=== PATIENT | female | born 2000 | race Caucasian/White ===

== ENCOUNTER 2021-09-30 15:43 | Emergency (ER) | payer OTHER ==
[~2021-09-30] VITALS: Ht 165.1 cm; Wt 63.5 kg
[~2021-09-30 15:43] MED LIST: AMOCLA400 PO; AMOX50SU PO; ANTOXYBENA OT; CODACEE120 PO; PERM5TC TOP; SULTRIEL PO
[2021-09-30] MEDS ORDERED: AMOX500 PO (15:51)
== END 2021-09-30 15:51 | disposition left against medical advice (07) ==
LOC: ER 15:43
DX: J02.9 Acute pharyngitis, unspecified (principal)
CPT/HCPCS: 99281

== ENCOUNTER 2023-04-20 08:59 | Emergency (ER) | payer OTHER ==
[~2023-04-20] VITALS: Ht 165.1 cm; Wt 68.0 kg
[~2023-04-20 08:59] MED LIST changes: +AMOX500 PO
[2023-04-20 09:56] VITALS: BP 146/88
[2023-04-20] MEDS ORDERED: CLIN300 PO ×2 (10:02)
[2023-04-20] MEDS ORDERED: HYDR1TAB94 PO ×2 (10:02)
== END 2023-04-20 10:03 | disposition home or self-care (01) ==
LOC: ER 08:59
DX: K04.7 Periapical abscess without sinus (principal)
CPT/HCPCS: 99283

== ENCOUNTER 2023-04-20 23:26 | Inpatient (IN) | payer OTHER ==
[~2023-04-20] VITALS: Ht 165.1 cm; Wt 66.1 kg
[~2023-04-20 23:26] MED LIST changes: +CLIN300 PO; +HYDR1TAB94 PO
[2023-04-21] MEDS ORDERED: Ketorolac Tromethamine 30mg Vial IV ONE (03:15)
[2023-04-21] MEDS ORDERED: Ampicillin Sod/Sulbactam Sod 3 GM in NS 100 ML IV ONE (03:15)
[2023-04-21] MEDS ORDERED: NS 1,000 ML IV SCH ×2 (03:15→08:40)
[2023-04-21 03:45] LABS: BASOPHILS ABSOLUTE AUTO 0.02 K/mm3 (0.00-0.23); BASOPHILS PERCENT AUTO 0 % (0-2); EOSINOPHILS ABSOLUTE AUTO 0.14 K/mm3 (0.00-0.68); EOSINOPHILS PERCENT AUTO 2 % (0-6); Hematocrit 36.6 % (33.0-51.0); Hemoglobin 12.3 g/dL (11.5-16.0); IMMATURE GRAN ABSOLUTE AUTO 0.03 K/mm3 (0.00-0.10); IMMATURE GRAN PERCENT AUTO 0 % (0-1); LYMPHOCYTES ABSOLUTE AUTO 1.11 K/mm3 (0.84-5.20); LYMPHOCYTES PERCENT AUTO 12 % (21-46); MONOCYTES ABSOLUTE AUTO 0.69 K/mm3 (0.16-1.47); MONOCYTES PERCENT AUTO 8 % (4-13); Mean Corpuscular HGB 30.1 pg (26.0-34.0); Mean Corpuscular HGB Conc 33.6 g/dL (31.5-36.5); Mean Corpuscular Volume 90 fL (80-100); Mean Platelet Volume 9.8 fL (9.1-12.4); NEUTROPHILS ABSOLUTE AUTO 6.96 K/mm3 (1.96-9.15); NEUTROPHILS PERCENT AUTO 78 % (41-73); Platelet Count 212 K/mm3 (150-400); RDW Standard Deviation 42.5 fL (35.1-46.3); Red Blood Cell Count 4.09 M/mm3 (3.80-5.20); White Blood Cell Count 8.95 K/mm3 (4.00-11.30)
[2023-04-21 04:06] LABS: Albumin/Globulin Ratio 1.2 (0.8-1.8); Bilirubin, Total 0.5 mg/dL (0.1-1.0); Bun/Creatinine Ratio 14.5 (12.0-20.0); Calcium, Blood 9.1 mg/dL (8.5-10.1); Creatinine, Blood 0.41 mg/dL (0.40-1.00); Globulin, Blood 3.3 g/dL (2.2-4.0); Potassium, Blood 3.8 mmol/L (3.5-5.5); Total Protein, Blood 7.3 g/dL (6.4-8.2)
[2023-04-21] MEDS ORDERED: Acetaminophen 325 MG TABLET PO ONE (06:50)
[2023-04-21] MEDS ORDERED: MethylPREDNISolone Sod Succ 125 MG Vial IV ONE (07:10)
[2023-04-21] MEDS ORDERED: HYDROmorphone HCl/Pf 1MG SYR IV PRN (08:30)
[2023-04-21] MEDS ORDERED: FLU VACC QS2023-24(6MOS UP)/PF 60 MCG/0.5 ML SYRINGE IM SCH (08:40)
[2023-04-21] MEDS ORDERED: Ondansetron 4 MG TAB PO PRN (08:40)
[2023-04-21] MEDS ORDERED: Ondansetron HCl 2 MG / ML 2ML Vial IV PRN (08:40)
[2023-04-21] MEDS ORDERED: Acetaminophen 325 MG TABLET PO PRN (08:40)
[2023-04-21 10:12] VITALS: BP 146/96
[2023-04-21] MEDS ORDERED: Ampicillin Sod/Sulbactam Sod 3 GM in NS 100 ML IV SCH (11:00)
--- NOTE | 2023-04-21 11:33 | NUR ---
PCU ADMIT PT BROUGHT TO PCU-18 BY FENG FROM ER @ APPROX 1000. PT A&O X4, ABLE TO STAND & INDEPENDENTLY AMBULATE FROM [facility] TO PCU BED. PT VSS. SPO2 > 92% ON RA. MONITOR SHOWING SR-ST, HR 90s-110s. PT L JAW AREA SWOLLEN. WHITE CHUNKS NOTED IN PTs MOUTH SURROUNDING L BOTTOM MOLAR THAT IS CAPPED FROM PT REPORT OF AN UNFINISHED ROOT CANAL 3 WEEKS AGO. PT DENYING PAIN/DISCOMFORT AT THIS TIME, STATING "WHAT THEY GAVE ME IN THE ER HELPED. I'M OKAY RIGHT NOW." PT REPORTS TAKING TYLENOL & IBUPROPHEN AT HOME & THAT HAVING BEEN ADEQUATE FOR HER PAIN MANAGEMENT.
[2023-04-21 15:47] VITALS: BP 130/91
[2023-04-21] MEDS ORDERED: ALPRAZolam 0.25 MG Tab PO PRN (15:55)
[2023-04-21] MEDS ORDERED: MethylPREDNISolone Sod Succ 125 MG Vial IV SCH (16:00)
--- NOTE | 2023-04-21 18:15 | NUR ---
END OF SHIFT PT A&O X4. VSS. SPO2 > 92% ON RA. MONITOR SHOWING SR-ST, HR 90s-120s W/ HR INCREASE TO 160s W/ PT REPORT OF HAVING A "PANIC ATTACK." PT REPORTING FEELING "FREAKED OUT ABOUT BEING IN THE HOSPITAL & MY MOUTH GETTING WORSE." PT REPORTS HAVING SOME ANXIETY IN THE PAST, BUT DENIES HAVING EVER TAKEN MEDICATION FOR ANXIETY. CALL TO MD MUÑIZ W/ ORDER FOR PRN PO XANAX, SEE ORDER. PT REPORTING IMPROVEMENT AFTER MEDICATION. NS GTT & IV ABX & IV STEROID GIVEN PER EMAR. PT REPORTS IMPROVEMENT IN L JAW DISCOMFORT & L JAW APPEARS LESS SWOLLEN COMPARED TO PT ARRIVAL. L BOTTOM MOLAR TOOTH SITE CONTINUES TO HAVE THICK WHITE DRAINAGE. PT RINSING & SPITTING OUT CONTENTS.
[2023-04-21 20:00] VITALS: BP 142/97
[2023-04-22] VITALS: BP 130/81
[2023-04-22 03:58] VITALS: BP 115/66
[2023-04-22 05:50] LABS: BASOPHILS ABSOLUTE AUTO 0.01 K/mm3 (0.00-0.23); BASOPHILS PERCENT AUTO 0 % (0-2); EOSINOPHILS PERCENT AUTO 0 % (0-6); Hematocrit 36.1 % (33.0-51.0); Hemoglobin 12.1 g/dL (11.5-16.0); IMMATURE GRAN ABSOLUTE AUTO 0.07 K/mm3 (0.00-0.10); IMMATURE GRAN PERCENT AUTO 1 % (0-1); LYMPHOCYTES ABSOLUTE AUTO 0.64 K/mm3 (0.84-5.20); LYMPHOCYTES PERCENT AUTO 7 % (21-46); MONOCYTES ABSOLUTE AUTO 0.32 K/mm3 (0.16-1.47); MONOCYTES PERCENT AUTO 3 % (4-13); Mean Corpuscular HGB 29.7 pg (26.0-34.0); Mean Corpuscular HGB Conc 33.5 g/dL (31.5-36.5); Mean Corpuscular Volume 89 fL (80-100); Mean Platelet Volume 9.8 fL (9.1-12.4); NEUTROPHILS ABSOLUTE AUTO 8.51 K/mm3 (1.96-9.15); NEUTROPHILS PERCENT AUTO 89 % (41-73); Platelet Count 245 K/mm3 (150-400); RDW Coefficient Variation 12.8 % (11.7-14.2); RDW Standard Deviation 41.5 fL (35.1-46.3); Red Blood Cell Count 4.07 M/mm3 (3.80-5.20); White Blood Cell Count 9.55 K/mm3 (4.00-11.30)
--- NOTE | 2023-04-22 05:56 | NUR ---
SHIFT SUMMARY PT REMAINS A&O X4, PLEASANT AND COOPERATIVE WITH CARE. VS; SR/ST RATE IN 90 - 1 TEENS; OCCASSIONAL 120 - 130'S. SBP 1 TEEN - 130'S, AFEBRILE, RR WNL, AND SPO2 >95% ON RA. PT DENIES DIFFICULTY SWALLOWING OR EATING AT THIS TIME. PT TOLERATING PO INTAKE WELL. PT REPORTS THAT PAIN IN HER TOOTH AND JAW "ARE GETTING MUCH BETTER, BUT STILL KIND OF COMES AND GOES". DENIES N/V, SOB, CP/PRESSURE, DIZZINESS. PT HAD UNEVENTFUL NIGHT WITH NO ACUTE CHANGES. PT RESTED VERY WELL DURING THE NIGHT. NO EPISODES OF ANXIETY DURING THE NIGHT. IVF AND ABX PER EMAR. PT AMBULATING TO RESTROOM INDEPENDENTLY AND TOLERATING WELL. NO BM THIS SHIFT; PT REPORTS SHE HAS NOT HAD BM FOR "ABOUT 1 WEEK OR SO". OTHERWISE DENIES ISSUES GI/. CALL LIGHT IN REACH. WILL UPDATE ONCOMING RN.
[2023-04-22 06:30] LABS: Bun/Creatinine Ratio 28.1 (12.0-20.0); Calcium, Blood 9.5 mg/dL (8.5-10.1); Creatinine, Blood 0.39 mg/dL (0.40-1.00)
[2023-04-22 08:27] VITALS: BP 117/74
--- NOTE | 2023-04-22 09:46 | NUR ---
AM NOTE: ASSUMED CARE OF PT THIS AM APPROX 0715 AFTER RECEIVING REPORT FROM ALEXEI GILLESPIE. PT IS A&Ox4, ANSWERING QUESTIONS APPROPRIATELY, COOPERATIVE W/CARE. PT DENIES SOB, O2 SAT >93% ON RA. PT DENIES CP, SR/ST ON MONITOR W/RATE 90s-100s. PT MAEW, IS INDEPENDENT IN ROOM, ABLE TO MAKE NEEDS KNOWN. L FACIAL SWELLING CONTINUES, BUT PT STATES IMPROVEMENT TO SWELLING AND PAIN. CONSULTATION HAS BEEN CALLED IN TO ANSWERING SERVICE FOR DR AREVALO, AWAITING PLAN OF CARE. PT HAS BEEN NPO SINCE MIDNIGHT.
[2023-04-22] MEDS ORDERED: Lidocaine 2%-Epineph 1:100000 20 ML MDV XX SCH (13:10)
[2023-04-22] MEDS ORDERED: Sodium Bicarb 8.4% 1 MEQ/ML 50 ML Vial IV ONE (13:15)
[2023-04-22] MEDS ORDERED: FentaNYL Citrate 50 MCG/ML 2 ML Injection IV ONE (13:40)
[2023-04-22 15:55] VITALS: BP 119/78
--- NOTE | 2023-04-22 17:05 | NUR ---
SHIFT SUMMARY: NO ACUTE CHANGES SINCE INITIAL NOTE. PT CONTINUES A&Ox4, ABLE TO MAKE NEEDS KNOWN, COOPERATIVE W/CARE. RESPIRATORY STATUS UNCHANGED. TELEMETRY DC'd, PT DENIES CP, VSS. L FACIAL SWELLING CONTINUES TO IMPROVE T/OUT DAY, PT DENIES NEED FOR PAIN MEDICATION AND REPORTS FEELING OF IMPROVEMENT. DR AREVALO TO/FROM BEDSIDE FOR CONSULTATION, NO INTERVENTIONS COMPLETED D/TO IMPROVEMENT TO ABSCESS/DRAINAGE/SWELLING. IV ABX THERAPY CONTINUES PER ORDERS. PT TOLERATING PO FLUIDS, REGULAR DIET ORDERED, PT CHANGED TO SURGICAL STATUS. AT THIS TIME, PT IS RESTING QUIETLY IN ROOM W/CALL LIGHT IN REACH. WILL CONTINUE TO MONITOR AND TREAT ACCORDINGLY UNTIL CHANGE OF SHIFT.
[2023-04-22 20:00] VITALS: BP 118/68
--- NOTE | 2023-04-22 20:22 | NUR ---
ASSUMPTION OF CARE THIS RN ASSUMED CARE OF PT AT 1900, REPORT FROM SONIDO LINDA. PT A&O X4, PLEASANT AND COOPERATIVE WITH CARE. PT'S MOTHER AT BEDSIDE VISITING. VSS; BP 118/68 (MAP 84), SR HR 93, RR17, PT ON RA SPO2 98%, TEMP 98.3. PT DENIES PAIN IN HER JAW/TOOTH. PT DENIES DIFFICULTY SWALLOWING. REPORTS "EVERYTHING IS GETTING AND FEELING BETTER". PT'S JAW/MOUTH DOES LOOK NOTICEABLY IMPROVED AND SWELLING MUCH IMPROVED. PT RESPORTS NO ISSUES GI/; PT REPORTS SHE HAD A BM TODAY THAT WAS WNL. PT VOIDING WELL AND AMBULATING INDEPENDENTLY. CALL LIGHT IN REACH, PT DENIES NEEDS AT THIS TIME.
[2023-04-23 00:18] VITALS: BP 106/68
[2023-04-23 04:32] VITALS: BP 116/70
--- NOTE | 2023-04-23 05:34 | NUR ---
SHIFT SUMMARY PT REMAINS A&O X4. VSS; SBP 106 - 1 TEENS, SR WITH HR 70 - 90'S, AFEBRILE, REMAINS ON RA WITH SPO2 >96%. PT HAD A FEW VISITORS, BUT OTHERWISE SLEPT MOST OF THE SHIFT. PT'S SWELLING OF HER MOUTH/JAW HAS MUCH IMPROVED, PT TOLERATING PO INTAKE WELL. PT DENIES PAIN OR DIFFICULTY SWALLOWING. PT AMBULATING TO RESTROOM INDEPENDENTLY, VOIDING WELL; DENIES ANY CONCERNS OR CHANGES. PT REPORTS HAD A BM THAT WAS LARGE, FORMED AND WNL. DENIES ANY CONCERNS. NO ACUTE CHANGES OVERNIGHT. PT CURRENTLY RESTING, CALL LIGHT IN REACH. WILL UPDATE ONCOMING RN
[2023-04-23 08:00] VITALS: BP 112/82
[2023-04-23 16:14] VITALS: BP 120/78
--- NOTE | 2023-04-23 17:29 | NUR ---
SHIFT SUMMARY: PT HAS BEEN A&Ox4, COOPERATIVE W/CARE, ABLE TO MAKE NEEDS KNOWN. PT DENIES SOB, O2 SATS >93% ON RA. VSS. PT HAS BEEN INDEPENDENT IN ROOM. FACIAL SWELLING CONTINUES TO IMPROVE, PT MEDICATED x1 W/TYLENOL FOR C/O MILD DISCOMFORT. DENTAL HYGIENIST TO BEDSIDE FOR EVALUATION/TREATMENT AND HAS ASSISTED PT WITH ESTABLISHING A F/UP APPT W/NEW DENTIST UPON DISCHARGE. IV ABX THERAPY CONTINUES PER ORDERS. PT RESTING IN BED W/MOTHER AT BEDSIDE, WILL CONTINUE TO MONITOR AND TREAT ACCORDINGLY UNTIL CHANGE OF SHIFT.
--- NOTE | 2023-04-23 17:56 | NUR ---
TRANSFER: PT HAS RECEIVED NEW ROOM ASSIGNMENT IN SURGICAL DEPT. REPORT GIVEN TO ALEXEI SULLIVAN TO RECEIVE PT.
--- NOTE | 2023-04-23 18:42 | NUR ---
SHIFT SUMMARY PT TRANSFERRED FROM PCU, A&OX4, VSS/RA, VINAY PO, ABX INFUSING AT TRANSFER, MOM BEDSIDE. WILL REPORT TO ONCOMING LIZBETH RN.
[2023-04-23 19:50] VITALS: BP 111/74
[2023-04-24 06:02] VITALS: BP 127/78
[2023-04-24 07:13] VITALS: BP 118/69
--- NOTE | 2023-04-24 07:23 | NUR ---
PT VSS T/O NIGHT. PT REP PAIN MINIMAL, DECLINED NEED FOR PAIN MEDS. PT REP SWELLING AND PAIN MUCH IMPROVED. PT VINAY PO, DENIED INC PAIN W/EATING OR SWALLOWING DIFFICULTIES. IV ABX CONT PER ORDERS.
[2023-04-24] MEDS ORDERED: AMOCLA875 PO ×2 (12:05)
--- NOTE | 2023-04-24 12:38 | NUR ---
DISCHARGE PT A&OX4, VSS/RA, VINAY PO, VOIDING, AMB INDEPENDENT, DENIES NEED FOR PAIN MED, IV DC'D. DC INS PROVIDED. PT REP UNDERSTANDING THOSE INSTRUCTIONS INCLUDING: [facility] X7DAYS UNTIL FINISHED, CALL DR AREVALO IF ABSCESS WORSENS, SCHEDULE WITH PCP AND ATTEND APPT WITH DENTIST ON SUNDAY, TAKE TYLENOL FOR PAIN. LEFT FLOOR WITH ALL PERSONAL POSSESSIONS TO GO HOME WITH MOM.
== END 2023-04-24 12:33 | disposition home or self-care (01) | DRG 159 ==
LOC: ER 23:26 → ERHOLD 04-21 08:36 → PCU 04-21 08:36 → SURS 04-23 17:53
PROVIDERS: Student in an Organized Health Care Education/Training Program; ADMIT Internal Medicine
DX: K04.7 Periapical abscess without sinus (principal)
CPT/HCPCS: 36415; 70487; 80048; 80053; 84703; 85025; 94762; 96365; 96366; 96375; 99283; 99285-25; A9270; J0295; J1885; J2930; J7030; Q9967

== ENCOUNTER 2023-05-01 20:18 | Emergency (ER) | payer OTHER ==
[~2023-05-01] VITALS: Ht 165.1 cm; Wt 63.5 kg
[~2023-05-01 20:18] MED LIST changes: +AMOCLA875 PO
[2023-05-01 22:05] VITALS: BP 127/91
[2023-05-02] MEDS ORDERED: AMOCLA875 PO (00:33)
[2023-05-02] MEDS ORDERED: Amoxicillin/Clavulanate K 875 MG Tab PO ONE (00:35)
== END 2023-05-02 00:41 | disposition home or self-care (01) ==
LOC: ER 20:18
DX: K08.89 Other specified disorders of teeth and supporting structures (principal); Z87.19 Personal history of other diseases of the digestive system
CPT/HCPCS: 99282; A9270

== ENCOUNTER 2024-02-06 09:06 | Emergency (ER) | payer OTHER ==
[~2024-02-06] VITALS: Ht 162.6 cm; Wt 65.8 kg
[2024-02-06 10:57] LABS: BASOPHILS ABSOLUTE AUTO 0.03 K/mm3 (0.00-0.23); BASOPHILS PERCENT AUTO 0 % (0-2); EOSINOPHILS ABSOLUTE AUTO 0.13 K/mm3 (0.00-0.68); EOSINOPHILS PERCENT AUTO 2 % (0-6); Hematocrit 40.7 % (33.0-51.0); Hemoglobin 13.8 g/dL (11.5-16.0); IMMATURE GRAN ABSOLUTE AUTO 0.01 K/mm3 (0.00-0.10); IMMATURE GRAN PERCENT AUTO 0 % (0-1); LYMPHOCYTES ABSOLUTE AUTO 1.27 K/mm3 (0.84-5.20); LYMPHOCYTES PERCENT AUTO 16 % (21-46); MONOCYTES ABSOLUTE AUTO 0.49 K/mm3 (0.16-1.47); MONOCYTES PERCENT AUTO 6 % (4-13); Mean Corpuscular HGB 30.4 pg (26.0-34.0); Mean Corpuscular HGB Conc 33.9 g/dL (31.5-36.5); Mean Corpuscular Volume 90 fL (80-100); Mean Platelet Volume 9.7 fL (9.1-12.4); NEUTROPHILS ABSOLUTE AUTO 5.83 K/mm3 (1.96-9.15); NEUTROPHILS PERCENT AUTO 75 % (41-73); Platelet Count 232 K/mm3 (150-400); RDW Coefficient Variation 11.9 % (11.7-14.2); RDW Standard Deviation 38.7 fL (35.1-46.3); Red Blood Cell Count 4.54 M/mm3 (3.80-5.20); White Blood Cell Count 7.76 K/mm3 (4.00-11.30)
[2024-02-06 11:07] LABS: Magnesium, Blood 2.1 mg/dL (1.6-2.4)
[2024-02-06 11:08] LABS: Albumin, Blood 4.5 g/dL (3.4-5.0); Albumin/Globulin Ratio 1.5 (0.8-1.8); Bilirubin, Total 0.7 mg/dL (0.1-1.0); Bun/Creatinine Ratio 10.6 (12.0-20.0); Calcium, Blood 9.8 mg/dL (8.5-10.1); Creatinine, Blood 0.57 mg/dL (0.40-1.00); Potassium, Blood 4.2 mmol/L (3.5-5.5); Total Protein, Blood 7.5 g/dL (6.4-8.2)
[2024-02-06 14:26] VITALS: BP 136/83
[2024-02-06] MEDS ORDERED: LAVAP4L PO (14:26)
== END 2024-02-06 14:52 | disposition home or self-care (01) ==
LOC: ER 09:06
PROVIDERS: Physician Assistant
DX: K59.00 Constipation, unspecified (principal); Z79.899 Other long term (current) drug therapy
CPT/HCPCS: 74177; 80053; 83735; 84703; 85025; 99284-25; Q9967

== ENCOUNTER → 2024-04-18 | Outpatient (CLI) | payer OTHER ==
[~2024-04-18] MED LIST changes: +LAVAP4L PO
[2024-04-18 12:56] LABS: Source, Urine Clean Catch
[2024-04-18 14:54] LABS: BASOPHILS ABSOLUTE AUTO 0.02 K/mm3 (0.00-0.23); BASOPHILS PERCENT AUTO 0 % (0-2); EOSINOPHILS ABSOLUTE AUTO 0.16 K/mm3 (0.00-0.68); EOSINOPHILS PERCENT AUTO 2 % (0-6); Hematocrit 42.3 % (33.0-51.0); Hemoglobin 14.5 g/dL (11.5-16.0); IMMATURE GRAN ABSOLUTE AUTO 0.03 K/mm3 (0.00-0.10); IMMATURE GRAN PERCENT AUTO 0 % (0-1); LYMPHOCYTES ABSOLUTE AUTO 1.39 K/mm3 (0.84-5.20); LYMPHOCYTES PERCENT AUTO 18 % (21-46); MONOCYTES ABSOLUTE AUTO 0.48 K/mm3 (0.16-1.47); MONOCYTES PERCENT AUTO 6 % (4-13); Mean Corpuscular HGB 30.3 pg (26.0-34.0); Mean Corpuscular HGB Conc 34.3 g/dL (31.5-36.5); Mean Corpuscular Volume 89 fL (80-100); Mean Platelet Volume 9.8 fL (9.1-12.4); NEUTROPHILS ABSOLUTE AUTO 5.86 K/mm3 (1.96-9.15); NEUTROPHILS PERCENT AUTO 74 % (41-73); Platelet Count 298 K/mm3 (150-400); RDW Coefficient Variation 12.1 % (11.7-14.2); RDW Standard Deviation 39.6 fL (35.1-46.3); Red Blood Cell Count 4.78 M/mm3 (3.80-5.20); White Blood Cell Count 7.94 K/mm3 (4.00-11.30)
[2024-04-18 14:57] LABS: Appearance, Urine Clear (Clear); Bilirubin, Urine Neg (Neg); Blood, Urine Neg (Neg); Color, Urine Yellow (P-Yellow); Glucose Qualitative, Urine Neg (Neg); Ketones, Urine Neg (Neg); Leukocyte Esterase, Urine Neg (Neg); Nitrite, Urine Neg (Neg); Protein, Urine Neg (Neg); Urobilinogen, Urine NORM (Normal)
[2024-04-20 16:38] LABS: HIV 1,2 COMBO ANTIGEN/ANTIBODY Negative (Negative)
[2024-04-20 20:07] LABS: HEPATITIS B SURFACE ANTIGEN Negative (Negative)
[2024-04-21 09:58] LABS: HEPATITIS C AB CIA INTERP Negative (Negative); HEPATITIS C ANTIBODY CIA INDEX 0.06 IV
== END | disposition home or self-care (01) ==
LOC: LAB SHORT 12:52
PROVIDERS: Registered Nurse Community Health
DX: Z34.91 Encounter for supervision of normal pregnancy, unspecified, first trimester (principal)
CPT/HCPCS: 81003; 84443; 86803; 87086; 87340; 87389

== ENCOUNTER → 2024-06-12 | Outpatient (CLI) | payer OTHER ==
[2024-06-12 20:56] LABS: Chlamydia Trachomatis Urine NOT DETECTED (NOT DETECT); Neisseria Gonorrhoea Urine NOT DETECTED (NOT DETECT)
== END ==
LOC: LAB SHORT 16:44 → LAB 16:44
PROVIDERS: Registered Nurse Community Health
DX: Z34.02 Encounter for supervision of normal first pregnancy, second trimester (principal)
CPT/HCPCS: 87491; 87591

== ENCOUNTER → 2024-10-29 | Outpatient (CLI) | payer OTHER | LOC: LAB SHORT 18:00 → LAB 18:00 | DX: Z34.03 Encounter for supervision of normal first pregnancy, third trimester (principal) | CPT/HCPCS: 87081; 87150 ==

== ENCOUNTER 2024-11-21 02:11 | Inpatient (IN) | payer OTHER ==
[2024-11-21] VITALS (42 sets, daily range): BP systolic 103–145; BP diastolic 59–104
[~2024-11-21] VITALS: Ht 165.1 cm; Wt 84.5 kg
[2024-11-21] MEDS ORDERED: ePHEDrine Sulfate 50 MG/ML 1ML Injection XX PRN (02:30)
[2024-11-21] MEDS ORDERED: FentaNYL 2mcg/ml-Bup 0.1% Epd 250 ML EPI PRN (02:30)
[2024-11-21] MEDS ORDERED: Ondansetron HCl 2 MG / ML 2ML Vial IV PRN (02:30)
[2024-11-21] MEDS ORDERED: Penicillin G Potassium 5,000,000 UNITS in NS 250 ML IV ONE (02:30)
[2024-11-21] MEDS ORDERED: Methylergonovine Maleate 0.2MG / ML 1ML Amp IM PRN (02:30)
[2024-11-21] MEDS ORDERED: Tranexamic Acid 100 ML IV SCH (02:30)
[2024-11-21] MEDS ORDERED: OXYTOCIN/RINGER'S LACTATE 500 ML IV PRN (02:30)
[2024-11-21] MEDS ORDERED: Carboprost Tromethamine 250 MCG/ML 1ML Amp IM PRN (02:30)
[2024-11-21] MEDS ORDERED: Oxytocin 10 Unit / ML Vial IM PRN (02:30)
[2024-11-21] MEDS ORDERED: FentaNYL Citrate 50 MCG/ML 2 ML Injection IV PRN (02:50)
[2024-11-21] MEDS ORDERED: PRENATAL TABLE1 EAC2 PO (02:57)
[2024-11-21] MEDS ORDERED: FentaNYL Citrate 50 MCG/ML 2 ML Injection ONE ×2 (02:57→03:48)
[2024-11-21 03:00] LABS: Hematocrit 39.0 % (33.0-51.0); Hemoglobin 13.9 g/dL (11.5-16.0); Mean Corpuscular HGB Conc 35.6 g/dL (31.5-36.5); Mean Corpuscular Volume 86 fL (80-100); Platelet Count 174 K/mm3 (150-400); RDW Coefficient Variation 12.6 % (11.7-14.2); RDW Standard Deviation 39.5 fL (35.1-46.3)
[2024-11-21 03:01] LABS: NRBC ABSOLUTE 0.00 K/mm3 (0.00-0.02); NRBC Auto 0.0 /100 WBC (0.0-0.2)
[2024-11-21 03:18] LABS: BAND PERCENT MAN 5 % (0-8); BASOPHILS ABSOLUTE MAN 0.00 K/mm3 (0.00-0.23); BASOPHILS PERCENT MAN 0 % (0-2); EOSINOPHILS ABSOLUTE MAN 0.13 K/mm3 (0.00-0.68); EOSINOPHILS PERCENT MAN 1 % (0-6); LYMPHOCYTES ABSOLUTE MAN 2.09 K/mm3 (0.84-5.20); LYMPHOCYTES PERCENT MAN 15 % (21-46); MONOCYTES ABSOLUTE MAN 0.41 K/mm3 (0.16-1.47); MONOCYTES PERCENT MAN 3 % (4-13); NEUTROPHILS ABSOLUTE MAN 11.29 K/mm3 (1.96-9.15); SEG NEUTROPHILS PERCENT MAN 76 % (41-73)
[2024-11-21] MEDS ORDERED: Penicillin G Potassium 2,500,000 UNITS in Dextrose 5% 100 ML IV SCH (07:00)
--- NOTE | 2024-11-21 10:24 | NUR ---
Spiritual Care Referral; responded to a spiritual care referral. Pt. declined spiritual care.
[2024-11-21] MEDS ORDERED: Benzocaine Topical Anesthetic Spray 60GM TOP PRN (17:40)
[2024-11-21] MEDS ORDERED: Ketorolac Tromethamine 30mg Vial IV PRN (17:45)
[2024-11-21] MEDS ORDERED: Witch Hazel/Glycerin PADS TOP PRN (17:45)
[2024-11-22 00:55] VITALS: BP 114/68
[2024-11-22 04:18] VITALS: BP 124/87
--- NOTE | 2024-11-22 04:52 | NUR ---
at 0400. pt calls [facility] and expresses desire to pump vs. breastfeed. Pt states she does not have a pump here or at home. I informed her that we have one she could use during her stay and that I would try to arrange getting her one for when she leave. I discussed all feeding options and offered help from a systems consultant.
[2024-11-22 05:48] LABS: BASOPHILS ABSOLUTE AUTO 0.01 K/mm3 (0.00-0.23); BASOPHILS PERCENT AUTO 0 % (0-2); EOSINOPHILS ABSOLUTE AUTO 0.08 K/mm3 (0.00-0.68); EOSINOPHILS PERCENT AUTO 1 % (0-6); Hematocrit 33.9 % (33.0-51.0); Hemoglobin 12.0 g/dL (11.5-16.0); IMMATURE GRAN ABSOLUTE AUTO 0.06 K/mm3 (0.00-0.10); IMMATURE GRAN PERCENT AUTO 0 % (0-1); LYMPHOCYTES ABSOLUTE AUTO 1.69 K/mm3 (0.84-5.20); LYMPHOCYTES PERCENT AUTO 12 % (21-46); MONOCYTES ABSOLUTE AUTO 1.08 K/mm3 (0.16-1.47); MONOCYTES PERCENT AUTO 8 % (4-13); Mean Corpuscular HGB Conc 35.4 g/dL (31.5-36.5); Mean Corpuscular Volume 88 fL (80-100); NEUTROPHILS ABSOLUTE AUTO 10.68 K/mm3 (1.96-9.15); NEUTROPHILS PERCENT AUTO 79 % (41-73); NRBC ABSOLUTE 0.00 K/mm3 (0.00-0.02); NRBC Auto 0.0 /100 WBC (0.0-0.2); Platelet Count 142 K/mm3 (150-400); RDW Coefficient Variation 13.0 % (11.7-14.2); RDW Standard Deviation 42.1 fL (35.1-46.3)
[2024-11-22 08:10] VITALS: BP 126/84
[2024-11-22] MEDS ORDERED: Prenatal Vit/FE Fumarate/FA 1 Tab PO SCH (09:00)
== END 2024-11-22 18:25 | disposition home or self-care (01) | DRG 807 ==
LOC: OBS 02:11 → BC 02:13 → OBS 02:27 → BC 02:31
PROVIDERS: Family Medicine; ADMIT Family Medicine
PROC: 10E0XZZ Delivery of Products of Conception, External Approach (ICD-10-PCS; principal; 2024-11-21)
PROC: 3E0R3BZ Introduction of Anesthetic Agent into Spinal Canal, Percutaneous Approach (ICD-10-PCS; principal; 2024-11-21)
PROC: 3E03329 Introduction of Other Anti-infective into Peripheral Vein, Percutaneous Approach (ICD-10-PCS; principal; 2024-11-21)
PROC: 00HU33Z Insertion of Infusion Device into Spinal Canal, Percutaneous Approach (ICD-10-PCS; principal; 2024-11-21)
PROC: 10907ZC Drainage of Amniotic Fluid, Therapeutic from Products of Conception, Via Natural or Artificial Opening (ICD-10-PCS; principal; 2024-11-21)
DX: O48.0 Post-term pregnancy (principal); Z37.0 Single live birth; O99.344 Other mental disorders complicating childbirth; F41.0 Panic disorder [episodic paroxysmal anxiety]; Z3A.40 40 weeks gestation of pregnancy; O99.824 Streptococcus B carrier state complicating childbirth; O77.0 Labor and delivery complicated by meconium in amniotic fluid; Z79.899 Other long term (current) drug therapy
CPT/HCPCS: 36415; 51702; 59025; 85025; 86850; 86900; 86901; 99214; A9270; J1885; J2405; J2540; J3010; J7050; J7120